=== PATIENT | male | born 1990 | race Caucasian/White ===

== ENCOUNTER → 2019-03-14 09:13 | Outpatient (CLI) | payer OTHER, SELFPAY ==
[2019-03-14 10:55] LABS: Anion Gap 7 (5-15); BUN 13 mg/dL (7-18); BUN/Creat Ratio 15.6 RATIO (10-20); Calcium,Total 8.7 mg/dL (8.5-10.1); Chloride 106 mmol/L (98-107); Cholesterol 188 mg/dL (200); Creatinine, Serum 0.84 mg/dL (0.70-1.30); EST Glomerular Filtration Rate 117 mL/min (>60); Est Glom Filt Rate - Afr Amer 142 mL/min (>60); Glucose 66 mg/dL (74-106); High Density Lipoprotein 59 mg/dL; Potassium 4.2 mmol/L (3.5-5.1); Sodium Level 140 mmol/L (136-145); Triglycerides 285 mg/dL; Very Low Density Lipoprotein 57 mg/dL (5-40)
[2019-03-14 12:25] LABS: HIV - WCH Non-Reactive (Nonreactive)
[2019-03-14 12:28] LABS: Neisserai gonorrhoeae by PCR Negative (Negative); Probe Check PASS; Sample Adequacy Control PASS; Specimen Processing Control PASS
== END ==
PROVIDERS: Family Provider Family Medicine; PCP Family Medicine; Referring Provider Family Medicine; Visit Provider Family Medicine
DX: Z00.00 Encounter for general adult medical examination without abnormal findings (principal)
CPT/HCPCS: 36415; 80048; 80061; 86703; 87591

== ENCOUNTER → 2019-09-26 16:11 | Outpatient (CLI) | payer OTHER, SELFPAY ==
[2019-09-26 20:11] LABS: Neisserai gonorrhoeae by PCR Negative (Negative)
[2019-09-26 20:12] LABS: Probe Check PASS; Sample Adequacy Control PASS; Specimen Processing Control PASS
[2019-09-29 10:26] LABS: HIV - WCH Non-Reactive (Nonreactive)
[2019-10-02 01:53] LABS: Rapid Plasmin Reagin (RPR) NONREACTIVE (NONREACTIVE)
== END ==
PROVIDERS: Family Provider Family Medicine; PCP Family Medicine; Referring Provider Family Medicine; Visit Provider Family Medicine
DX: Z20.2 Contact with and (suspected) exposure to infections with a predominantly sexual mode of transmission (principal)
CPT/HCPCS: 36415; 86592; 86703; 87591

== ENCOUNTER → 2019-10-01 11:21 | Outpatient (CLI) | payer OTHER, SELFPAY ==
[2019-10-02 11:05] LABS: HSV 1 IgG < 0.91 index (0.00-0.90); HSV 2 IgG < 0.91 index (0.00-0.90)
== END ==
PROVIDERS: Family Provider Family Medicine; PCP Family Medicine; Referring Provider Family Medicine; Visit Provider Family Medicine
DX: Z20.2 Contact with and (suspected) exposure to infections with a predominantly sexual mode of transmission (principal)
CPT/HCPCS: 36415; 86695; 86696

== ENCOUNTER 2021-12-28 16:39 | Outpatient (CLI) | payer OTHER, SELFPAY ==
[2021-12-28 19:31] LABS: Chlamydia Trachomatis by PCR Negative (Negative); Neisserai gonorrhoeae by PCR Negative (Negative); Probe Check PASS; Sample Adequacy Control PASS; Specimen Processing Control PASS
[2021-12-29 11:51] LABS: HIV - WCH Non-Reactive (Nonreactive); Syphilis Antibodies Non-reactive
[2021-12-30 11:25] LABS: HSV 1 IgG < 0.91 index (0.00-0.90); HSV 2 IgG < 0.91 index (0.00-0.90)
== END 2021-12-28 23:59 | disposition home or self-care (01) ==
LOC: MFPLAB 16:43
PROVIDERS: PCP Family Medicine; Referring Provider Family Medicine; Visit Provider Family Medicine
DX: Z20.2 Contact with and (suspected) exposure to infections with a predominantly sexual mode of transmission (principal)
CPT/HCPCS: 36415; 86695; 86696; 86703; 86780; 87491; 87591

== ENCOUNTER → 2022-11-03 | Outpatient (CLI) | payer OTHER, SELFPAY ==
[2022-11-03 15:41] LABS: ALB/GLOB Ratio 1.3 RATIO (0.9-2.4); AST(SGOT) 17 U/L (15-37); Alanine Aminotransfer ALT/SGPT 37 U/L (16-61); Albumin, Serum 4.1 g/dL (3.2-5.0); Alkaline Phosphatase 51 U/L (45-117); Anion Gap 5 (5-15); BUN 18 mg/dL (7-18); BUN/Creat Ratio 18.4 RATIO (10-20); Calcium,Total 9.2 mg/dL (8.5-10.1); Chloride 103 mmol/L (98-107); Cholesterol 217 mg/dL (200); Creatinine, Serum 0.98 mg/dL (0.70-1.30); EST Glomerular Filtration Rate 95 mL/min (>60); Est Glom Filt Rate - Afr Amer 115 mL/min (>60); Globulin 3.1 g/dL (2.2-4.2); Glucose 76 mg/dL (74-106); High Density Lipoprotein 73 mg/dL; Potassium 4.7 mmol/L (3.5-5.1); Protein, Total 7.2 g/dL (6.4-8.2); Sodium Level 137 mmol/L (136-145); Triglycerides 71 mg/dL; Very Low Density Lipoprotein 14 mg/dL (5-40)
== END | disposition home or self-care (01) ==
LOC: MFPLAB 11:50
PROVIDERS: PCP Family Medicine; Referring Provider Family Medicine; Visit Provider Nurse Practitioner Family
DX: Z13.1 Encounter for screening for diabetes mellitus (principal); Z13.220 Encounter for screening for lipoid disorders
CPT/HCPCS: 36415; 80053; 80061